=== PATIENT | female | born 2000 | race Caucasian/White ===

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

== ENCOUNTER 2018-05-13 16:20 | Outpatient (CLI) | payer OTHER ==
[2018-05-13 16:50] VITALS: BP 131/87; PULSE 81; RESP 16; TEMP 98.9
--- NOTE | 2018-05-25 09:59 | P.MSEPDOC ---
Presenting Problems - Arrival Data Date of Arrival on Unit: 05/13/18 Time of Arrival on Unit: 16:22 Mode of Transport: EMS - Complaint OB-Reason for Admission/Chief Complaint: Rule Out PROM Comment: pt seen at [facility] to check if her water broke and they checked pt out and said shes rupture and dilated to 4 cm. pt denies any leaking of fluid at this time Medical History - Information : 3 Para: 2 Term: 2 : 0 Abortions: Spontaneous or Elective: 0 Number of Living Children: 2 - Gestational Age Gestational Age by FRANKLIN (wks/days): 37 Weeks and 4 Days Review of Systems - Review of Systems Constitutional: No problems Breast: No problems ENT: No problems Cardiovascular: No problems Respiratory: No problems Gastrointestinal: No problems Genitourinary: No problems Musculoskeletal: No problems Neurological: No problems Skin: No problems Vital Signs - Temperature Temperature: 98.9 F Temperature Source: Oral - Pulse Right Brachial Pulse Rate: 81 Pulse Assessment Method: Automatic Cuff - Respirations Respiratory Rate: 16 Oxygen Delivery Method: Room Air - Blood Pressure Right Arm Blood Pressure: 131/87 Blood Pressure Mean: 101 Blood Pressure Source: Automatic Cuff Medical Screen Scoring (Post) - Cervical Exam Dilation: 0 cm = 0 Effacement: Exam Deferred Membranes: Intact - Uterine Contractions Frequency: > 5 minutes apart = 1 Intensity: N/A - Maternal Vital Signs Maternal Temperature: N/A Maternal Blood Pressure: N/A Signs of Preeclampsia: N/A Maternal Respirations: N/A - Pain Assessment Pain Scale Used: Numeric (1 - 10) Pain Intensity: 2 Pain Management Goal: 1 Pain Description: Cramping Pain Behavior: Vocalization - Maternal Trauma Maternal Trauma: N/A - Assessment Heart Rate: 120 Heart Rate - NICHD Category: Category I (Normal) = 0 NST: Reactive Position: N/A Station: N/A - Total Score Total Score (Post): 1 - Post Treatment Level of Risk Post Treatment Level of Risk: Low (0-5) Physician Notification (Post) - Physician Notified Physician Notified Date: 05/13/18 Physician Notified Time: 17:25 Spoke With: dr cadena New Order Received: Yes - Notification Comment Comment: repeat amnisure in 1 hour recheck cervix in 1 hour if no change home may discharge to home and keep appointment with dr canchola tomorrow 05/14/2018 Disposition - Disposition OB Disposition: Discharge to home Discharge Date: 05/13/18 Discharge Time: 18:40 I agree with the RN Medical Screening Exam: Yes Risk & Benefit of care provided described in d/c instruction: Yes Diagnosis: FALSE LABOR AT OR AFTER 37 COMPLETED WEEKS OF GESTATION
== END 2018-05-13 18:40 | disposition home or self-care (01) ==
LOC: FBPOP 16:20
PROVIDERS: ATTEND Obstetrics & Gynecology
DX: O47.1 False labor at or after 37 completed weeks of gestation (principal); Z3A.37 37 weeks gestation of pregnancy
CPT/HCPCS: 59025; G0463; 99213

== ENCOUNTER 2018-06-03 20:14 | Inpatient (IN) | payer OTHER ==
[2018-06-03] MEDS ORDERED: METHYLERGONOVINE 0.2 MG/ML 1 ML AMP IM PRN (20:51)
[2018-06-03] MEDS ORDERED: CARBOPROST TROMETHAMINE 250 MCG/ML 1 ML AMP IM PRN (20:51)
[2018-06-03] MEDS ORDERED: OXYTOCIN 10 UNIT/ML 1 ML VIAL IM PRN (20:51)
[2018-06-03] MEDS ORDERED: TERBUTALINE 1 MG/ML VIAL SQ PRN (20:51)
[2018-06-03] MEDS ORDERED: LIDOCAINE 1% (PF) 10 MG/ML (30 ML SDV) SQ PRN (20:51)
[2018-06-03 21:05] VITALS: BMI 25.6
[2018-06-03] MEDS: LACTATED RINGERS 1,000 ML IV SCH ×2 (21:09→21:58)
[2018-06-03 21:17] LABS: Anisocytosis Slight; Basophils % (A) 0 %; Eosinophils # (A) 0.2 k/uL (0-0.7); Eosinophils % (A) 2 %; HGB 9.8 gm/dL (11.4-16.0); Hypochromasia Slight; Lymphocytes # (A) 1.9 k/uL (1.0-4.8); Lymphocytes % (A) 20 %; MCH 24.4 pg (25.0-35.0); MCHC 32.5 g/dL (31.0-37.0); Mean Platelet Volume 7.5; Microcytosis Slight; Monocytes # (A) 0.7 k/uL (0-1.0); Monocytes % (A) 7 %; Neutrophils # (A) 6.6 k/uL (1.3-7.7); Neutrophils % (A) 69 %; Platelet Count 282 k/uL (150-450); RBC 4.01 m/uL (3.80-5.40); RDW 16.3 % (11.5-15.5); WBC 9.6 k/uL (4.0-11.0)
--- NOTE | 2018-06-03 21:51 | P.HPOB ---
History of Present Illness H&P Date: 06/03/18 Chief Complaint: Contractions This is a 17-year-old 3 para 2002 woman with an estimated due date of based on LMP who presents at 40-4/7 weeks gestation in spontaneous active labor. She denies leakage of fluids or vaginal bleeding. She has had an uncomplicated . Obstetric history is significant for normal spontaneous vaginal deliveries in 2013 and 2016 at term. Her blood type is O+, antibody screen negative, rubella immune, VDRL nonreactive, hepatitis B surface antigen negative, HIV negative, group B strep negative Review of Systems All systems: negative Past Medical History Past Medical History: No Reported History History of Any Multi-Drug Resistant Organisms: None Reported Past Surgical History: No Surgical Hx Reported Past Anesthesia/Blood Transfusion Reactions: No Reported Reaction Past Psychological History: No Psychological Hx Reported Smoking Status: Never smoker Past Alcohol Use History: None Reported Past Drug Use History: None Reported - Past Family History Father Family Medical History: Diabetes Mellitus Medications and Allergies Home Medications Medication Instructions Recorded Confirmed Type No Known Home Medications 05/13/18 06/03/18 History Allergies Allergy/AdvReac Type Severity Reaction Status Date / Time No Known Allergies Allergy Verified 05/13/18 16:34 Exam Vital Signs Temp Pulse Resp BP Pulse Ox 06/03/18 20:59 98 F 98 16 120/88 100 06/03/18 20:48 98.0 F 98 16 120/88 100 Intake and Output 06/03/18 06/03/18 06/03/18 06:59 14:59 22:59 Other: # Voids 1 Weight 69.853 kg This is a pleasant, visibly gravid female in active labor. Targeted physical exam is performed. 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 heart tones are reassuring by external monitoring and she is jennifer every 2-5 minutes spontaneously. Results Result Diagrams: 06/03/18 21:08 Abnormal Lab Results - Last 24 Hours (Table) 06/03/18 Range/Units 21:08 Hgb 9.8 L (11.4-16.0) gm/dL Hct 30.0 L (34.0-46.0) % MCV 75.0 L (80.0-100.0) fL MCH 24.4 L (25.0-35.0) pg RDW 16.3 H (11.5-15.5) % Assessment and Plan (1) Anemia Current Visit: Yes Status: Acute Code(s): D64.9 - ANEMIA, UNSPECIFIED SNOMED Code(s): 160640871 (2) Spontaneous onset of labor Current Visit: Yes Status: Acute Code(s): OIQ3753 - SNOMED Code(s): 18866496 (3) Post-dates Current Visit: Yes Status: Acute Code(s): O48.0 - POST-TERM SNOMED Code(s): 50566423 Plan: 17-year-old 3 para 2 woman at 40-4/7 weeks' gestation presents in spontaneous active labor. status is reassuring. She is group B strep negative and Rh+. May receive an epidural anesthetic upon request. Anticipate normal spontaneous vaginal delivery.
[2018-06-03] MEDS ORDERED: ROPIVACAINE 100 MG, fentaNYL (PF) 200 MCG in SODIUM CHLORIDE 0.9% 76 ML EPIDURAL ONE (21:59)
[2018-06-03] MEDS ORDERED: OXYTOCIN 20 UNITS/1000 ML NS 1,000 ML IV SCH ×2 (22:45→23:30)
[2018-06-03] MEDS ORDERED: HYDROCORTISONE 2.5% RECTAL CREAM 30 GM TUBE RECTAL PRN (23:29)
[2018-06-03] MEDS ORDERED: WITCH HAZEL 1 EACH MED..PAD TOPICAL PRN (23:29)
[2018-06-03] MEDS ORDERED: IBUPROFEN 600 MG TAB PO PRN (23:29)
[2018-06-03] MEDS ORDERED: ACETAMINOPHEN TAB 325 MG TAB PO PRN (23:29)
[2018-06-03] MEDS ORDERED: diphenhydrAMINE 50 MG/ML 1 ML VIAL IVP PRN ×2 (23:29)
[2018-06-03] MEDS ORDERED: diphenhydrAMINE 50 MG CAP PO PRN (23:29)
[2018-06-03] MEDS ORDERED: ZOLPIDEM 5 MG TAB PO PRN (23:29)
[2018-06-03] MEDS ORDERED: SIMETHICONE 80 MG CHEWABLE PO PRN (23:29)
[2018-06-03] MEDS ORDERED: LANOLIN CREAM 5 GM TUBE TOPICAL PRN (23:29)
[2018-06-03] MEDS ORDERED: diphenhydrAMINE 25 MG CAP PO PRN (23:29)
[2018-06-03] MEDS ORDERED: BENZOCAINE/MENTHOL SPRAY 1 GM/SPRAY AEROSOL TOPICAL PRN (23:29)
--- NOTE | 2018-06-03 23:29 | P.PROBDLV ---
Vaginal Delivery Note - . Vaginal Delivery Note: Findings: Female in the right occiput anterior position with Apgars of 8 at 1 minute and 9 at 5 minutes weight pending at the time of dictation. Intact , calcified, three-vessel cord placenta. No lacerations. EBL 100 mL's. Delivery summary: This is a 17-year-old 3 para 2001 woman who presented at 40-4/7 weeks gestation in spontaneous active labor. On admission she was 4 cm dilated and received an epidural anesthetic. Following placement of the epidural she was 6+ centimeters dilated and artificial rupture membranes was undertaken. Clear fluid was noted. Her contractions spaced out and Pitocin augmentation was initiated. She then rapidly progressed to complete cervical dilation. heart tones were stable throughout the first stage of labor. She did have strong urge to push. She was positioned, prepped and draped in the modified [place] position. With maternal effort on over the course of approximately 3 contractions she did push to . With additional maternal effort the head delivered from the right occiput anterior position. Nose and mouth were bulb suctioned on the perineum. Anterior followed by the posterior shoulders were delivered without difficulty and the rest of the delivery was delivered onto the field. The nose and mouth were further bulb suctioned. Cord was clamped and cut. Apgars were 8 at 1 minute and 9 at 5 minutes. Skin to skin and weight is pending at the time of this dictation. An intact, three-vessel cord placenta was delivered after an approximately 2 minute third stage of labor. The vagina and cervix were inspected and no further lacerations were noted. Uterus was massaged. Bladder was drained for approximately 200 mL of clear urine. EBL was 100. Uterus was firm below the level of the umbilicus. Both mother and infant were doing well post delivery in the room.
--- NOTE | 2018-06-04 07:33 | P.PN ---
Subjective Progress Note Date: 06/04/18 Principal diagnosis: day #1 No complaints. Currently resting well. Objective - Vital Signs Vital signs: Vital Signs Temp 98 F 06/04/18 01:28 Pulse 78 06/04/18 04:00 Resp 16 06/04/18 04:00 BP 128/71 06/04/18 01:28 Pulse Ox 100 06/03/18 20:59 Intake & Output 06/03/18 06/04/18 06/04/18 18:59 06:59 18:59 Output Total 400 Balance -400 Weight 69.853 kg Output: Urine 200 Estimated Blood Loss 200 Other: # Voids 1 - Constitutional General appearance: Present: average body habitus, cooperative - EENT Eyes: Present: PERRLA ENT: Present: hearing grossly normal - Neck Neck: Present: normal ROM - Respiratory Respiratory: bilateral: CTA - Cardiovascular Rhythm: regular - Gastrointestinal General gastrointestinal: Present: normal bowel sounds - Neurologic Neurologic: Present: CNII-XII intact - Musculoskeletal Musculoskeletal: Present: gait normal, strength equal bilaterally - Psychiatric Psychiatric: Present: A&O x's 3, appropriate affect, intact judgment & insight - Labs CBC & Chem 7: 06/03/18 21:08 Labs: Abnormal Lab Results - Last 24 Hours (Table) 06/03/18 Range/Units 21:08 Hgb 9.8 L (11.4-16.0) gm/dL Hct 30.0 L (34.0-46.0) % MCV 75.0 L (80.0-100.0) fL MCH 24.4 L (25.0-35.0) pg RDW 16.3 H (11.5-15.5) % Assessment and Plan Assessment: Doing well day #1. Plan: Continue care. Likely discharge home tomorrow. Time with Patient: Less than 30
[2018-06-04] MEDS: SENNOSIDES-DOCUSATE SODIUM 1 EACH TAB PO SCH ×2 (12:41→23:53)
[2018-06-04 23:53] VITALS: BP 122/70; PULSE 77; RESP 18; TEMP 98.3
[2018-06-05] MEDS: SENNOSIDES-DOCUSATE SODIUM 1 EACH TAB PO SCH (08:10)
--- NOTE | 2018-06-05 08:40 | P.DS ---
Providers Date of admission: 06/03/18 20:51 Expected date of discharge: 06/05/18 Attending physician: Malathi Jalloh Primary care physician: Malathi Jalloh [facility] Course: This is a 17-year-old white female 3 para 2001 EDC 05/30/2018 at 40-4/7 weeks' gestation. Patient presented to the hospital in active spontaneous labor. Her was remarkable for blood type O positive, rubella status immune, group B strep cultures negative. Please see dictated history and physical for details. Patient went on to quickly deliver a liveborn female with scores of 8 and 9 at one and 5 minutes respectively. Infant weighed 7 lbs. 8 oz. or 3410 g. She did well at the time of delivery, estimated blood loss recorded at 100 mL, no lacerations or repair as needed. Please see dictated delivery note for details. Patient is doing well this morning. She is voiding, ambulating and passing flatus without difficulty. Vital signs are stable and she is afebrile. Fundus is firm and in the midline, symmetric and 18 week size. Breasts are not engorged. There is minimal lochia rubra. Medina is doing well and being discharged home per director of software engineering. Patient will follow-up with me in the office in 6 weeks. I have reminded her no intercourse, tampons or douching. She will use [id number] ibuprofen products, 200 mg pills, 3 every 6 hours as needed for pain. She will call me with any fevers shakes or chills, foul smelling or copious lochia, with the passage of large blood clots, with any pain not alleviated by [id number] products, or indeed with any concerns. will follow-up with director of software engineering as per recommendations. We have briefly discussed options for contraception and we will discuss this further in the office. Patient Condition at Discharge: Good Plan - Discharge Summary New Discharge Prescriptions: No Action No Known Home Medications Discharge Medication List No Known Home Medications 05/13/18 [History] Follow up Appointment(s)/Referral(s): Malathi Jalloh MD [Primary Care Provider] - 6 Weeks Discharge Disposition: HOME SELF-CARE
== END 2018-06-05 10:00 | disposition home or self-care (01) | DRG 775 ==
LOC: FBPOP 20:14 → 4FBP 20:51
PROVIDERS: ADMIT Obstetrics & Gynecology; ATTEND Obstetrics & Gynecology
PROC: 00HU33Z Insertion of Infusion Device into Spinal Canal, Percutaneous Approach (ICD-10-PCS; principal; 2018-06-03)
PROC: 10907ZC Drainage of Amniotic Fluid, Therapeutic from Products of Conception, Via Natural or Artificial Opening (ICD-10-PCS; principal; 2018-06-03)
PROC: 10E0XZZ Delivery of Products of Conception, External Approach (ICD-10-PCS; principal; 2018-06-03)
PROC: 3E0R3NZ Introduction of Analgesics, Hypnotics, Sedatives into Spinal Canal, Percutaneous Approach (ICD-10-PCS; principal; 2018-06-03)
DX: O48.0 Post-term pregnancy (principal); Z37.0 Single live birth; Z3A.40 40 weeks gestation of pregnancy; Z83.3 Family history of diabetes mellitus
CPT/HCPCS: 59025; 85025; 99213

== ENCOUNTER 2019-03-07 13:04 | Emergency (ER) | payer OTHER ==
[2019-03-07 13:19] VITALS: RESP 16
[2019-03-07] MEDS ORDERED: SODIUM CHLORIDE 0.9% 1,000 ML IV ONE ×2 (13:45→14:48)
[2019-03-07 14:24] LABS: Anisocytosis Slight; Basophils % (A) 0 %; Eosinophils # (A) 0.1 k/uL (0-0.7); Eosinophils % (A) 1 %; HCT 37.9 % (34.0-46.0); HGB 12.6 gm/dL (11.4-16.0); Lymphocytes # (A) 0.7 k/uL (1.0-4.8); Lymphocytes % (A) 7 %; MCH 25.6 pg (25.0-35.0); MCHC 33.2 g/dL (31.0-37.0); Mean Platelet Volume 10.5; Microcytosis Slight; Monocytes # (A) 0.4 k/uL (0-1.0); Monocytes % (A) 4 %; Neutrophils # (A) 8.2 k/uL (1.3-7.7); Neutrophils % (A) 87 %; Platelet Count 241 k/uL (150-450); RBC 4.92 m/uL (3.80-5.40); RDW 17.6 % (11.5-15.5); WBC 9.4 k/uL (4.0-11.0)
[2019-03-07 14:27] LABS: Amorphous Sediment,Urine Rare /hpf; Appearance,Urine Cloudy (Clear); Bilirubin,Urine Negative (Negative); Blood,Urine Negative (Negative); Color,Urine Yellow; Glucose,Urine (UA) Negative (Negative); Ketones,Urine 4+ (Negative); Leukocyte Esterase,Urine Trace (Negative); Mucus,Urine Many /hpf; Nitrite,Urine Negative (Negative); Protein,Urine 1+ (Negative); Specific Gravity,Urine 1.029 (1.001-1.035); Squamous Epithelial Cell,Urine 19 /hpf (0-4); Urobilinogen,Urine <2.0 mg/dL (<2.0)
[2019-03-07 14:38] LABS: ALT 30 U/L (9-52); AST 20 U/L (14-36); Albumin 4.7 g/dL (3.5-5.0); Alkaline Phosphatase 71 U/L (38-126); Anion Gap 12 mmol/L; Blood Urea Nitrogen 8 mg/dL (7-17); Calcium 9.8 mg/dL (8.4-10.2); Carbon Dioxide 22 mmol/L (22-30); Chloride 103 mmol/L (98-107); Glucose 88 mg/dL (74-99); Potassium 3.8 mmol/L (3.5-5.1); Sodium 137 mmol/L (137-145); Total Bilirubin 1.8 mg/dL (0.2-1.3); Total Protein 7.7 g/dL (6.3-8.2)
--- NOTE | 2019-03-07 14:56 | ED ---
Skin/Abscess/FB HPI - General Chief complaint: Skin/Abscess/Foreign Body Stated complaint: Rash Time Seen by Provider: 03/07/19 13:23 Source: patient Mode of arrival: ambulatory Limitations: no limitations - History of Present Illness Initial comments: 18-year-old female a weeks last menstrual period in December with positive test 02/01/2019. Patient believes she is about 8 weeks . Patient states she has had morning sickness, she states that night she had continuous vomiting. Patient states she woke up with a rash on her face was not sure what it was. Patient denies it being itchy she denies fever chills night sweats. Patient denies dysuria urgency frequency. Patient denies abdominal pain vaginal bleeding. Review of system negative. Patient states she presented for evaluation of rash. Upon arrival there is petechiae of the face. No subconjunctival hemorrhage. Remaining review of systems negative patient ap pears well no signs of acute distress. - Related Data Home Medications Medication Instructions Recorded Confirmed No Known Home Medications 05/13/18 06/03/18 Allergies Allergy/AdvReac Type Severity Reaction Status Date / Time No Known Allergies Allergy Verified 03/07/19 13:19 Review of Systems ROS Statement: Those systems with pertinent positive or pertinent negative responses have been documented in the HPI. ROS Other: All systems not noted in ROS Statement are negative. Past Medical History Past Medical History: No Reported History History of Any Multi-Drug Resistant Organisms: None Reported Past Surgical History: No Surgical Hx Reported Past Anesthesia/Blood Transfusion Reactions: No Reported Reaction Past Psychological History: No Psychological Hx Reported Smoking Status: Never smoker Past Alcohol Use History: None Reported Past Drug Use History: None Reported - Past Family History Father Family Medical History: Diabetes Mellitus General Exam - General Exam Comments Initial Comments: General: The patient is awake and alert, in no distress, and does not appear acutely ill. Eye: +3 mm pupils are equal, round and reactive to light, extra-ocular movements are intact. No nystagmus. There is normal conjunctiva bilaterally. No signs of icterus. No subconjunctival hemorrhage. No swelling of the eyes. Ears, nose, mouth and throat: There are moist mucous membranes and no oral lesions. Neck: The neck is supple, there is no tenderness or JVD. Cardiovascular: There is a regular rate and rhythm. No murmur, rub or gallop is appreciated. Respiratory: Lungs are clear to auscultation, respirations are non-labored, breath sounds are equal. No wheezes, stridor, rales, or rhonchi. Gastrointestinal: Soft, non-distended, non-tender abdomen without masses or organomegaly noted. There is no rebound or guarding present. No CVA tenderness. Bowel sounds are unremarkable. Musculoskeletal: Normal ROM, no tenderness. Strength 5/5. Sensation intact. Pulses equal bilaterally 2+. Neurological: A&O x 3. CN II-XII intact, There are no obvious motor or sensory deficits. Coordination appears grossly intact. Speech is normal. Skin: Skin is warm and dry and no rashes or lesions are noted. Petechiae of the face b/l, diffuse, no hematoma, or contusion. No lower extremity edema. No involvement of petechiae on the lower extremities. Psychiatric: Cooperative, appropriate mood & affect, normal judgment. Limitations: no limitations Course Vital Signs 03/07/19 03/07/19 13:17 16:07 Temperature 97.3 F L 97.6 F Pulse Rate 93 85 Respiratory 16 16 Rate Blood Pressure 119/83 103/58 O2 Sat by Pulse 99 100 Oximetry Medical Decision Making - Medical Decision Making 18-year-old male presented for rash. Petechiae on face. I inquired about vomiting. Patient states she has had morning sickness as she has 8 weeks . At this time feel the petechiae and face mostly due to blood vessel rupture from increased pressure during vomiting. No conjunctival hemorrhage or evidence of trauma to the face, no involvement of the legs no lower extremity edema. Platelet WNL. Blood pressure WNL. He denies any abdominal complaints or vaginal bleeding. UA revealed not clean catch, 19 squamous will culture. +4 ketones, pt given IVF, 2 L 0.9% NS. Patient has no active vomiting while in the emergency department. She was reassessed, states she is ready for discharge. Denies current nausea. The second patient is stable for discharge with outpatient follow-up. Patient is agreeable plan as well as outpatient disposition. Denies questions at this time. Pt appears well. I discussed the case attending provider Dr. Regan prior to patient's discharge. He is agreeable patient plan of care as well as discharge. - Lab Data Result diagrams: 03/07/19 14:00 03/07/19 14:00 Lab Results 03/07/19 03/07/19 03/07/19 Range/Units 14:00 14:00 14:00 WBC 9.4 (4.0-11.0) k/uL RBC 4.92 (3.80-5.40) m/uL Hgb 12.6 (11.4-16.0) gm/dL Hct 37.9 (34.0-46.0) % MCV 77.0 L (80.0-100.0) fL MCH 25.6 (25.0-35.0) pg MCHC 33.2 (31.0-37.0) g/dL RDW 17.6 H (11.5-15.5) % Plt Count 241 (150-450) k/uL Neutrophils % 87 % Lymphocytes % 7 % Monocytes % 4 % Eosinophils % 1 % Basophils % 0 % Neutrophils # 8.2 H (1.3-7.7) k/uL Lymphocytes # 0.7 L (1.0-4.8) k/uL Monocytes # 0.4 (0-1.0) k/uL Eosinophils # 0.1 (0-0.7) k/uL Basophils # 0.0 (0-0.2) k/uL Anisocytosis Slight Microcytosis Slight Sodium 137 (137-145) mmol/L Potassium 3.8 (3.5-5.1) mmol/L Chloride 103 (98-107) mmol/L Carbon Dioxide 22 (22-30) mmol/L Anion Gap 12 mmol/L BUN 8 (7-17) mg/dL Creatinine 0.49 L (0.52-1.04) mg/dL Est GFR (CKD-EPI)AfAm >90 (>60 ml/min/1.73 sqM) Est GFR (CKD-EPI)NonAf >90 (>60 ml/min/1.73 sqM) Glucose 88 (74-99) mg/dL Calcium 9.8 (8.4-10.2) mg/dL Total Bilirubin 1.8 H (0.2-1.3) mg/dL AST 20 (14-36) U/L ALT 30 (9-52) U/L Alkaline Phosphatase 71 (38-126) U/L Total Protein 7.7 (6.3-8.2) g/dL Albumin 4.7 (3.5-5.0) g/dL Urine Color Yellow Urine Appearance Cloudy H (Clear) Urine pH 6.0 (5.0-8.0) Ur Specific [place] 1.029 (1.001-1.035) Urine Protein 1+ H (Negative) Urine Glucose (UA) Negative (Negative) Urine Ketones 4+ H (Negative) Urine Blood Negative (Negative) Urine Nitrite Negative (Negative) Urine Bilirubin Negative (Negative) Urine Urobilinogen <2.0 (<2.0) mg/dL Ur Leukocyte Esterase Trace H (Negative) Ur Squamous Epith Cells 19 H (0-4) /hpf Amorphous Sediment Rare H (None) /hpf Urine Mucus Many H (None) /hpf Disposition Clinical Impression: Vomiting during , Petechiae Disposition: HOME SELF-CARE Condition: Good Instructions (If sedation given, give patient instructions): Nausea and Vomiting in (ED) Additional Instructions: Please use medication as discussed. Please follow-up with family doctor in the next 2 days, and OBGYN within next 2 weeks. Please return to emergency room if the symptoms increase or worsen or for any other concerns, abdominal pain, vaginal bleeding. Is patient prescribed a controlled substance at d/c from ED?: No Referrals: None,Stated [Primary Care Provider] - 1-[address] [facility] [NON-STAFF] - 1-2 days Annette Das DO [Doctor of Osteopathic Medicine] - 1-2 days Time of Disposition: 15:45
[2019-03-07 16:08] VITALS: BP 103/58; PULSE 85; TEMP 97.6
== END 2019-03-07 16:15 | disposition home or self-care (01) ==
LOC: EC 13:04
DX: O21.9 Vomiting of pregnancy, unspecified (principal); O99.89 Other specified diseases and conditions complicating pregnancy, childbirth and the puerperium; R23.3 Spontaneous ecchymoses; Z3A.08 8 weeks gestation of pregnancy
CPT/HCPCS: 36415; 80053; 81001; 85025; 96360; 96361; 99283

== ENCOUNTER 2019-10-11 06:06 | Inpatient (IN) | payer OTHER ==
[2019-10-11] MEDS ORDERED: TERBUTALINE 1 MG/ML VIAL SQ PRN (06:23)
[2019-10-11] MEDS ORDERED: OXYTOCIN 10 UNIT/ML 1 ML VIAL IM PRN (06:23)
[2019-10-11] MEDS ORDERED: CARBOPROST TROMETHAMINE 250 MCG/ML 1 ML AMP IM PRN (06:23)
[2019-10-11] MEDS ORDERED: METHYLERGONOVINE 0.2 MG/ML 1 ML AMP IM PRN (06:23)
[2019-10-11] MEDS ORDERED: LIDOCAINE 0.5% (PF) 5 MG/ML (50 ML SDV) SQ PRN (06:23)
[2019-10-11] MEDS ORDERED: OXYTOCIN 30 UNITS/500 ML NS 30 UNIT in SALINE 1 500ML.BAG IV SCH (06:30)
[2019-10-11 06:41] VITALS: BMI 26.4
[2019-10-11] MEDS: LACTATED RINGERS 1,000 ML IV SCH ×2 (06:44→08:47)
[2019-10-11 06:49] LABS: Anisocytosis Slight; Basophils # (A) 0.1 k/uL (0-0.2); Basophils % (A) 1 %; Eosinophils # (A) 0.1 k/uL (0-0.7); Eosinophils % (A) 1 %; HGB 9.1 gm/dL (11.4-16.0); Hypochromasia Marked; Lymphocytes # (A) 1.8 k/uL (1.0-4.8); Lymphocytes % (A) 19 %; MCH 22.6 pg (25.0-35.0); MCHC 31.5 g/dL (31.0-37.0); MCV 71.8 fL (80.0-100.0); Mean Platelet Volume 6.5; Microcytosis Moderate; Monocytes # (A) 0.5 k/uL (0-1.0); Monocytes % (A) 5 %; Neutrophils # (A) 6.7 k/uL (1.3-7.7); Neutrophils % (A) 71 %; Platelet Count 241 k/uL (150-450); Poikilocytosis Slight; RBC 4.04 m/uL (3.80-5.40); RDW 16.7 % (11.5-15.5); WBC 9.5 k/uL (3.8-10.6)
--- NOTE | 2019-10-11 07:35 | P.HPOB ---
History of Present Illness H&P Date: 10/11/19 This is a 19-year-old white female 4 para 3003 EDC 10/12/2019 at 39-6/7 weeks' gestation. Patient presents this morning for induction with favorable multiparous cervix. Fetus is been active throughout the . She denies vaginal bleeding or fluid leakage, but is having mild irregular contractions upon admission. history is significant for [place] strep cultures negative, rubella status immune. Blood type O positive, VDRL testing, urine culture, HIV testing, hepatitis B surface antigen, gonorrhea and chlamydia cultures all negative. One-hour Glucola 98. Past medical history is unremarkable. Past surgical history is negative. Current medications vitamins daily. ALLERGIES none known. Family history significant for diabetes mellitus. Obstetric history significant for normal spontaneous vaginal deliveries 3 in the past, unremarkable. Social history patient denies alcohol or drug use, no tobacco use. Patient is single. On exam this is a pleasant white female who is 5 foot 5 inches, 159 pounds, blood pressure 136/84. Vital signs are stable and she is afebrile. General physical exam is within normal limits, chest is clear, extremities reveal no edema. Cervix is 4 cm dilated, 60-70% effaced, -2 station, vertex presentation. Artificial amniorrhexis reveals clear fluid. heart rate is in the 140s with frequent accelerations, consistent with reactive NST. Impression: 39-6/7 weeks intrauterine , here for elective induction of labor, all signs reassuring. Plan: Augmentation per hospital protocol. Continue close maternal and surveillance. Epidural may be placed at patient's request, analgesic options reviewed. Anticipate normal spontaneous vaginal delivery. Review of Systems Constitutional: Reports as per HPI Past Medical History Past Medical History: No Reported History History of Any Multi-Drug Resistant Organisms: None Reported Past Surgical History: No Surgical Hx Reported Past Anesthesia/Blood Transfusion Reactions: No Reported Reaction Past Psychological History: No Psychological Hx Reported Smoking Status: Never smoker Past Alcohol Use History: None Reported Past Drug Use History: None Reported - Past Family History Father Family Medical History: Diabetes Mellitus, Hypertension Medications and Allergies Home Medications Medication Instructions Recorded Confirmed Type No Known Home Medications 05/13/18 10/11/19 History Allergies Allergy/AdvReac Type Severity Reaction Status Date / Time No Known Allergies Allergy Verified 10/11/19 06:21 Exam Vital Signs Temp Pulse Resp BP Pulse Ox 10/11/19 06:35 97.5 F L 104 H 18 136/84 100 Intake and Output 10/10/19 10/11/19 10/11/19 22:59 06:59 14:59 Other: Weight 72.121 kg see dictation please Results Result Diagrams: 10/11/19 06:35 Abnormal Lab Results - Last 24 Hours (Table) 10/11/19 Range/Units 06:35 Hgb 9.1 L (11.4-16.0) gm/dL Hct 29.0 L (34.0-46.0) % MCV 71.8 L (80.0-100.0) fL MCH 22.6 L (25.0-35.0) pg RDW 16.7 H (11.5-15.5) % Assessment and Plan Assessment: 39 6/7 weeks gestation, here for induction of labor. All signs reassuring Plan: Close maternal and surveillance. Oxytocin augmentation per protocol. Anticipate normal spontaneous vaginal delivery Time with Patient: Less than 30
[2019-10-11] MEDS ORDERED: ROPIVACAINE 5MG/ML 20ML VIAL ONE (08:48)
[2019-10-11] MEDS ORDERED: fentaNYL (PF) 50 MCG/ML 5 ML AMP ONE (08:48)
[2019-10-11] MEDS ORDERED: SODIUM CHLORIDE 0.9% 100 ML BAG ONE (08:48)
[2019-10-11] MEDS ORDERED: diphenhydrAMINE 25 MG CAP PO PRN (10:26)
[2019-10-11] MEDS ORDERED: WITCH HAZEL 1 EACH MED..PAD TOPICAL PRN (10:26)
[2019-10-11] MEDS ORDERED: ACETAMINOPHEN TAB 325 MG TAB PO PRN (10:26)
[2019-10-11] MEDS ORDERED: LANOLIN CREAM 5 GM TUBE TOPICAL PRN (10:26)
[2019-10-11] MEDS ORDERED: ZOLPIDEM 5 MG TAB PO PRN (10:26)
[2019-10-11] MEDS ORDERED: diphenhydrAMINE 50 MG CAP PO PRN (10:26)
[2019-10-11] MEDS ORDERED: IBUPROFEN 600 MG TAB PO PRN (10:26)
[2019-10-11] MEDS ORDERED: BENZOCAINE/MENTHOL SPRAY 1 GM/SPRAY AEROSOL TOPICAL PRN (10:26)
[2019-10-11] MEDS ORDERED: SIMETHICONE 80 MG CHEWABLE PO PRN (10:26)
[2019-10-11] MEDS ORDERED: diphenhydrAMINE 50 MG/ML 1 ML VIAL IVP PRN ×2 (10:26)
[2019-10-11] MEDS ORDERED: HYDROCORTISONE 2.5% RECTAL CREAM 30 GM TUBE RECTAL PRN (10:26)
--- NOTE | 2019-10-11 10:26 | P.PROBDLV ---
Vaginal Delivery Note - . Vaginal Delivery Note: This is a 19-year-old white female 4 para 3003 EDC 10/12/2019 at 39-6/7 weeks' gestation. Patient presented for induction with favorable multiparous cervix. Blood type O+, rubella status immune, group B strep cultures negative. Please see dictated history and physical for details. Artificial amniorrhexis reveals clear fluid. Oxytocin was started and titrated per hospital protocol. Epidural is placed per patient's request. She becomes completely dilated at 0959 hours and began the second stage of labor at that time. Perineal body is prepped and draped in usual sterile fashion. With excellent maternal expulsive efforts the head is delivered in the occiput anterior position and the infant restituted accordingly. There was no nuchal cord noted. The left or anterior shoulder is gently delivered from underneath the pubic symphysis at which time the oropharynx, nasopharynx, and external nares were all bulb suctioned on the perineal body. Patient is officially delivered of a liveborn female at 1012 hours. Umbilical cord is doubly clamped and ligated, she is handed to waiting nurses for evaluation where scores of 9 and 9 at one and 5 minutes respectively are given. Placenta is delivered spontaneously, it is inspected and noted to be intact with trivascular cord at 1015 hours. Uterus is then massaged. Careful inspection of the cervix, vagina, perineum, periurethral, and perirectal areas reveals no lacerations and no defects. No suturing is necessary. Cord blood is sent to the lab for evaluation. All sponge needle and enhancement counts are correct at the end of our delivery. Infant weighs 7 lbs. 12 oz. or 3535 g. Patient is allowed to begin the bonding experience in the LDR.
[2019-10-11] MEDS ORDERED: OXYTOCIN 20 UNITS/1000 ML NS 1,000 ML IV SCH (10:30)
[2019-10-11] MEDS: SENNOSIDES-DOCUSATE SODIUM 1 EACH TAB PO SCH (21:41)
[2019-10-12 07:19] LABS: Anisocytosis Slight; Basophils % (A) 0 %; Eosinophils # (A) 0.1 k/uL (0-0.7); Eosinophils % (A) 1 %; HCT 26.9 % (34.0-46.0); HGB 8.2 gm/dL (11.4-16.0); Hypochromasia Marked; Lymphocytes # (A) 1.4 k/uL (1.0-4.8); Lymphocytes % (A) 14 %; MCH 22.3 pg (25.0-35.0); MCHC 30.4 g/dL (31.0-37.0); MCV 73.4 fL (80.0-100.0); Mean Platelet Volume 6.5; Microcytosis Moderate; Monocytes # (A) 0.4 k/uL (0-1.0); Monocytes % (A) 4 %; Neutrophils # (A) 7.4 k/uL (1.3-7.7); Neutrophils % (A) 78 %; Platelet Count 201 k/uL (150-450); Poikilocytosis Slight; RBC 3.66 m/uL (3.80-5.40); RDW 16.6 % (11.5-15.5); WBC 9.5 k/uL (3.8-10.6)
[2019-10-12] MEDS: SENNOSIDES-DOCUSATE SODIUM 1 EACH TAB PO SCH (07:45)
[2019-10-12 07:54] VITALS: BP 116/75; PULSE 74; RESP 16; TEMP 98.2
--- NOTE | 2019-10-12 09:12 | P.DS ---
Providers Date of admission: 10/11/19 06:06 Expected date of discharge: 10/12/19 Attending physician: Malathi Jalloh Primary care physician: Stated None Hospital Course: This is a 19-year-old white female 4 para 3003 EDC 10/12/2019 at 39-6/7 weeks' gestation. Patient presented for elective induction with favorable multiparous cervix. Fetus is been active throughout the . Group B strep cultures negative, rubella status immune, blood type O positive. Please see admitting history and physical for details. Patient progressed well with the aid of an epidural and oxytocin augmentation. She quickly delivered vaginally a liveborn female with scores of 9 and 9 at one and 5 minutes respectively. Infant weight 3535 g or 7 lbs. 12 oz. As meter blood loss 250 mL's. Please see dictated delivery note for details. No perineal lacerations or suturing was necessary. This morning the patient is doing well. She is voiding, ambulating and passing flatus without difficulty. Vital signs are stable and she is afebrile. Breasts are not engorged. Patient is bottle feeding. Extremities are negative for edema, fundus is firm, midline, symmetric, 18 week size. Patient is judged to be in very good condition for discharge home. She'll follow-up with me in the office in 6 weeks. I have reminded her no intercourse, tampons or douching. She will use [id number] Advil, Aleve, or Motrin as needed for pain. She is planning tubal ligation we will schedule this at the 6 week visit. Baby will follow up with oxygen plant operator as per recommendation. Patient Condition at Discharge: Good Plan - Discharge Summary Discharge Rx Participant: No New Discharge Prescriptions: No Action No Known Home Medications Discharge Medication List No Known Home Medications 05/13/18 [History] Follow up Appointment(s)/Referral(s): Malathi Jalloh MD [STAFF PHYSICIAN] - 6 Weeks Discharge Disposition: HOME SELF-CARE
== END 2019-10-12 11:15 | disposition home or self-care (01) | DRG 807 ==
LOC: 4FBP 06:06
PROVIDERS: ADMIT Obstetrics & Gynecology; ATTEND Obstetrics & Gynecology
PROC: 3E0R3NZ Introduction of Analgesics, Hypnotics, Sedatives into Spinal Canal, Percutaneous Approach (ICD-10-PCS; principal; 2019-10-11)
PROC: 10907ZC Drainage of Amniotic Fluid, Therapeutic from Products of Conception, Via Natural or Artificial Opening (ICD-10-PCS; principal; 2019-10-11)
PROC: 10E0XZZ Delivery of Products of Conception, External Approach (ICD-10-PCS; principal; 2019-10-11)
PROC: 00HU33Z Insertion of Infusion Device into Spinal Canal, Percutaneous Approach (ICD-10-PCS; principal; 2019-10-11)
PROC: 3E033VJ Introduction of Other Hormone into Peripheral Vein, Percutaneous Approach (ICD-10-PCS; principal; 2019-10-11)
DX: O75.9 Complication of labor and delivery, unspecified (principal); Z37.0 Single live birth; Z3A.39 39 weeks gestation of pregnancy; Z82.49 Family history of ischemic heart disease and other diseases of the circulatory system; Z83.3 Family history of diabetes mellitus
CPT/HCPCS: 85025; 86850; 86900; 86901